=== PATIENT | male | born 1930 | race Caucasian/White ===

== ENCOUNTER 2016-04-06 06:35 | Day surgery (SDC) | payer OTHER ==
[~2016-04-06] VITALS: Ht 177.8 cm; Wt 86.2 kg
[~2016-04-06 06:35] MED LIST: ALLO300T2 PO; ASPI81TA2 PO; ATOR20TA PO; CANA300T PO; CLOP75TA2 PO; FURO40TA5 PO; GLIP-191 PO; LISI-604 PO; METO-296 PO; OXCA300O4 PO; PANT40TA4 PO; POTA20TA75 PO; TAMS0.4C31 PO
[2016-04-06] MEDS ORDERED: IODIXANOL 320MG/ML 100 ML BOTTLE IV ONE (07:50)
[2016-04-06] MEDS ORDERED: LIDOCAINE HCL 1% 20ML VIAL (Pyxis) INJ ONE (07:52)
[2016-04-06] MEDS ORDERED: MIDAZOLAM HCL 2 MG/2 ML VIAL ONE (08:40)
[2016-04-06] MEDS ORDERED: FENTANYL CITRATE/PF 50MCG/ML 2ML VIAL ONE (08:40)
[2016-04-06] MEDS ORDERED: ACETAMINOPHEN 325MG TABLET PO PRN (09:45)
[2016-04-06] MEDS ORDERED: ATROPINE SULFATE 1MG/10ML SYR IV PRN (09:45)
== END 2016-04-06 15:30 | disposition home or self-care (01) ==
LOC: CCL 06:35
PROVIDERS: ATTEND Specialist
DX: I25.10 Atherosclerotic heart disease of native coronary artery without angina pectoris (principal); E11.9 Type 2 diabetes mellitus without complications; I10 Essential (primary) hypertension; E78.5 Hyperlipidemia, unspecified
CPT/HCPCS: 82962; 93455; C1760; C1769; C1887; C1893; J1644; J2250; J3010; J3490; Q9967

== ENCOUNTER 2016-08-18 06:31 | Day surgery (SDC) | payer OTHER ==
[~2016-08-18] VITALS: Ht 175.3 cm; Wt 90.7 kg
[2016-08-18] MEDS ORDERED: repatha SQ (07:53)
[2016-08-18] MEDS ORDERED: GLIP10TA10 PO (07:53)
[2016-08-18] MEDS ORDERED: AGGR PO (07:53)
[2016-08-18] MEDS ORDERED: FENTANYL CITRATE/PF 50MCG/ML 2ML VIAL ONE (08:00)
[2016-08-18] MEDS ORDERED: MIDAZOLAM HCL 2 MG/2 ML VIAL ONE (08:00)
[2016-08-18] MEDS ORDERED: LIDOCAINE HCL 1% 20ML VIAL (Pyxis) INJ ONE (08:22)
[2016-08-18] MEDS ORDERED: HEPARIN SODIUM 1,000 UNIT/1ML VIAL IV ONE (08:22)
[2016-08-18] MEDS ORDERED: IODIXANOL 320MG/ML 100 ML BOTTLE IV ONE (08:22)
[2016-08-18] MEDS ORDERED: ACETAMINOPHEN 325MG TABLET PO PRN (09:15)
[2016-08-18 12:21] VITALS: BP 144/80
[2016-08-18] MEDS ORDERED: NICARDIPINE 100MCG/ML 10ML VIAL (CATH LAB) IV ONE (15:25)
[2016-08-18] MEDS ORDERED: NITROGLYCERIN 50MCG/ML 10ML VIAL (CATH LAB) IV ONE (15:25)
== END 2016-08-18 12:45 | disposition home or self-care (01) ==
LOC: CCL 06:31
PROVIDERS: ATTEND Specialist
DX: I25.10 Atherosclerotic heart disease of native coronary artery without angina pectoris (principal); I21.3 ST elevation (STEMI) myocardial infarction of unspecified site; I10 Essential (primary) hypertension; E11.9 Type 2 diabetes mellitus without complications; E78.5 Hyperlipidemia, unspecified; Z87.891 Personal history of nicotine dependence; Z95.1 Presence of aortocoronary bypass graft
CPT/HCPCS: 82962; 93455; C1769; C1887; C1893; J1644; J2250; J3010; J3490; Q9967

== ENCOUNTER 2017-06-08 06:44 | Day surgery (SDC) | payer OTHER ==
[~2017-06-08] VITALS: Ht 177.8 cm; Wt 89.8 kg
[~2017-06-08 06:44] MED LIST changes: +AGGR PO; +ASPI-1160 PO; -ASPI81TA2 PO; +CLOP75TA16 PO; -CLOP75TA2 PO; +GLIP10TA10 PO; -METO-296 PO; +METO-396 PO; +POTA20TA12 PO; -POTA20TA75 PO; +repatha SQ
[2017-06-08] MEDS ORDERED: LIDOCAINE HCL 1% 20ML VIAL (Pyxis) INJ ONE (07:35)
[2017-06-08] MEDS ORDERED: IODIXANOL 320MG/ML 100 ML BOTTLE IV ONE (07:35)
[2017-06-08 08:21] LABS: BASOPHILS % 0.3 % (0.0-2.0); EOSINOPHILS % 3.1 % (0.0-5.0); HEMATOCRIT. 44.5 % (42.0-52.0); HEMOGLOBIN. 15.2 g/dL (14.0-18.0); LYMPHOCYTES % 17.5 % (20.0-50.0); MEAN CORPUSCULAR HEMOGLOBIN 37.1 pg (28.0-32.0); MEAN CORPUSCULAR VOLUME 108.6 fL (80.0-94.0); MEAN PLATELET VOLUME 9.1 fl (7.4-10.4); MONOCYTES % 11.9 % (2.0-8.0); NEUTROPHILS % 67.2 % (40.0-76.0); PLATELET 196 x1000/uL (130-400)
[2017-06-08] MEDS ORDERED: EVOL420W SQ (08:21)
[2017-06-08] MEDS ORDERED: MIDAZOLAM HCL 2 MG/2 ML VIAL ONE (08:31)
[2017-06-08] MEDS ORDERED: FENTANYL CITRATE/PF 50MCG/ML 2ML VIAL ONE (08:32)
[2017-06-08] MEDS ORDERED: ACETAMINOPHEN 325MG TABLET PO PRN (09:30)
[2017-06-08] MEDS ORDERED: ONDANSETRON HCL 4MG/2ML VIAL IV PRN (09:30)
[2017-06-08] MEDS ORDERED: MORPHINE SULFATE 2 MG/ML CPJ (NOT FOR IM USE) IV PRN (09:30)
[2017-06-08] MEDS ORDERED: ATROPINE SULFATE 1MG/10ML SYR IV PRN (09:30)
[2017-06-08] MEDS ORDERED: NITROGLYCERIN 50MCG/ML 10ML VIAL (CATH LAB) IV ONE (11:53)
[2017-06-08] MEDS ORDERED: NICARDIPINE 100MCG/ML 10ML VIAL (CATH LAB) IV ONE (11:53)
[2017-06-08] MEDS ORDERED: HEPARIN SODIUM 1,000 UNIT/1ML VIAL IV ONE (11:53)
== END 2017-06-08 14:00 | disposition home or self-care (01) ==
LOC: CCL 06:44
PROVIDERS: ATTEND Specialist
DX: I25.110 Atherosclerotic heart disease of native coronary artery with unstable angina pectoris (principal); I11.9 Hypertensive heart disease without heart failure; E11.9 Type 2 diabetes mellitus without complications; E78.5 Hyperlipidemia, unspecified; Z79.82 Long term (current) use of aspirin; Z87.891 Personal history of nicotine dependence; Z88.0 Allergy status to penicillin; Z95.1 Presence of aortocoronary bypass graft
CPT/HCPCS: 36415; 82962; 85025; 93459; C1769; C1887; C1893; J1644; J2250; J3010; J3490; Q9967